=== PATIENT | female | born 1930 | race Caucasian/White ===

== ENCOUNTER 2016-11-20 17:15 | Observation (INO) | payer OTHER ==
[~2016-11-20] VITALS: Ht 149.9 cm; Wt 49.0 kg
[~2016-11-20 17:15] MED LIST: CALCIUM 600 +1 EAC7 PO; PROZAC10 MG PO; SINGULAIR10 MG PO; TRAZODONE; TRAZODONE HCL50 MG PO; TYLENOL REGULA325 MG PO; VITAMIN D1000 INTUN PO
[2016-11-20 19:44] LABS: EOSINOPHIL (%) 2.3 % (0-5); EOSINOPHIL COUNT 0.2 K/uL (0-0.3); HEMATOCRIT 41.3 % (36.0-46.0); IMMATURE GRANULOCYTE (%) 0.1 % (0.0-0.7); IMMATURE GRANULOCYTE COUNT 0.1 K/uL; LYMPHOCYTE COUNT 1.8 K/uL (1.0-2.8); MCH 32.4 PG (29.0-34.0); MCHC 34.9 G/DL (30.0-36.0); MEAN PLAT.VOLUME 9.8 uM^3 (9.5-12.4); MONOCYTE (%) 8.2 % (3-12); MONOCYTE COUNT 0.6 K/uL (0-0.8); NEUTROPHIL (%) 63.5 % (45-76); NEUTROPHIL COUNT 4.4 K/uL (1.8-6.4); PLATELET COUNT 244 K/uL (156-360); RBC DIS.WIDTH-SD 42.5 % (39-53); RED BLOOD COUNT 4.44 M/uL (3.80-5.20)
[2016-11-20 19:56] LABS: CHLORIDE 107 mEq/L (99-109); POTASSIUM 3.9 mEq/L (3.7-5.4); SODIUM 142 mEq/L (136-147)
[2016-11-20 19:58] LABS: GLUCOSE 101 mg/dL (70-99)
[2016-11-20 19:59] LABS: ANION GAP 9 MEQ/L (2-14)
[2016-11-20 20:00] LABS: TOTAL BILIRUBIN 0.2 mg/dL (0.0-1.0)
[2016-11-20 20:01] LABS: ALKALINE PHOSPHATASE 54 IU/L (3-129)
[2016-11-20 20:02] LABS: GFR ESTIMATE (CALCULATED) > 59 mL/min/
[2016-11-20 20:03] LABS: UREA NITROGEN (BUN) 8 mg/dL (9-23)
[2016-11-20 20:05] LABS: LIPASE 94 U/L (1.0-51.0)
[2016-11-20 20:11] LABS: TROP-I INTERPRETATION NEGATIVE; TROPONIN-I < 0.01 ng/mL (0.0-0.30)
[2016-11-20] MEDS ORDERED: VITAMIN D31000 UNI2 PO (22:52)
[2016-11-20] MEDS ORDERED: CALCIUM 600 +1 EAC2 PO (22:53)
[2016-11-21 02:14] VITALS: BP 190/72
[2016-11-21 03:19] VITALS: BP 148/87
[2016-11-21 03:34] LABS: TROP-I INTERPRETATION NEGATIVE; TROPONIN-I < 0.01 ng/mL (0.0-0.30)
[2016-11-21 06:27] LABS: HEMATOCRIT 38.1 % (36.0-46.0); MCH 32.3 PG (29.0-34.0); MCHC 34.1 G/DL (30.0-36.0); MCV 94.8 FL (83-99); PLATELET COUNT 251 K/uL (156-360); RBC DIS.WIDTH-CV 13.2 % (11.8-14.6); RBC DIS.WIDTH-SD 45.6 % (39-53); RED BLOOD COUNT 4.02 M/uL (3.80-5.20); WHITE BLOOD COUNT 6.5 K/uL (4.1-10.2)
[2016-11-21 06:46] LABS: ALKALINE PHOSPHATASE 41 IU/L (3-129); ANION GAP 10 MEQ/L (2-14); CHLORIDE 109 MEQ/L (99-109); GFR ESTIMATE (CALCULATED) > 59 mL/min/; GLUCOSE 95 mg/dL (70-99); POTASSIUM 3.4 MEQ/L (3.7-5.4); SAMPLE HEMOLYSIS CHECK 0; SAMPLE ICTERIC CHECK 0; SAMPLE LIPEMIA CHECK 0; SODIUM 143 MEQ/L (136-147); TOTAL BILIRUBIN 0.4 MG/DL (0.0-1.0); UREA NITROGEN (BUN) 9 mg/dL (9-23)
[2016-11-21 06:48] LABS: TROP-I INTERPRETATION NEGATIVE; TROPONIN-I < 0.01 ng/mL (0.0-0.30)
[2016-11-21 08:05] VITALS: BP 174/73
[2016-11-21 14:21] VITALS: BP 164/71
[2016-11-21] MEDS ORDERED: ASPIR-LOW81 MG PO (14:56)
[2016-11-21] MEDS ORDERED: NIFEDIPINE ER30 MG PO (14:56)
== END 2016-11-21 15:45 | disposition home or self-care (01) ==
LOC: EME 17:15 → EDOF 11-21 00:59 → 5WEST 11-21 02:05
PROVIDERS: Emergency Medicine; Internal Medicine
DX: R07.89 Other chest pain (principal); I10 Essential (primary) hypertension; K21.9 Gastro-esophageal reflux disease without esophagitis; G89.29 Other chronic pain; F41.9 Anxiety disorder, unspecified; F32.9 Major depressive disorder, single episode, unspecified
CPT/HCPCS: 71020; 74177; 76705; 76770; 80053; 83690; 84484; 85025; 85027; 93005; 93975; 99281; 99285; G0378; J1644; J7030; J7040

== ENCOUNTER 2017-06-07 09:33 | Emergency (ER) | payer OTHER ==
[~2017-06-07] VITALS: Ht 149.9 cm; Wt 50.3 kg
[~2017-06-07 09:33] MED LIST changes: +ASPIR-LOW81 MG PO; +CALCIUM 600 +1 EAC2 PO; +NIFEDIPINE ER30 MG PO; +VITAMIN D31000 UNI2 PO
[2017-06-07 10:34] LABS: HEMATOCRIT 42.5 % (36.0-46.0); MCH 32.2 PG (29.0-34.0); MCHC 34.4 G/DL (30.0-36.0); MCV 93.6 FL (83-99); MEAN PLAT.VOLUME 10.3 uM^3 (9.5-12.4); PLATELET COUNT 243 K/uL (156-360); RBC DIS.WIDTH-CV 12.6 % (11.8-14.6); RBC DIS.WIDTH-SD 43.5 % (39-53); RED BLOOD COUNT 4.54 M/uL (3.80-5.20); WHITE BLOOD COUNT 5.3 K/uL (4.1-10.2)
[2017-06-07 10:43] LABS: CHLORIDE 106 mEq/L (99-109); POTASSIUM 3.9 mEq/L (3.7-5.4); SODIUM 142 mEq/L (136-147)
[2017-06-07 10:45] LABS: GLUCOSE 108 mg/dL (70-99)
[2017-06-07 10:46] LABS: ANION GAP 12 MEQ/L (2-14)
[2017-06-07 10:49] LABS: GFR ESTIMATE (CALCULATED) > 59 mL/min/
[2017-06-07 10:50] LABS: UREA NITROGEN (BUN) 7 mg/dL (9-23)
[2017-06-07 11:54] LABS: TROP-I INTERPRETATION NEGATIVE; TROPONIN-I < 0.01 ng/mL (0.0-0.30)
[2017-06-07 14:04] LABS: ADD MIUA? YES; BILIRUBIN NEGATIVE; BLOOD SMALL; COLOR YELLOW ((YELLOW)); GLUCOSE (STRIP) NEGATIVE; KETONES 5; LEUKOCYTES TRACE; NITRITE NEGATIVE; PROTEIN (STRIP) 30; SPECIFIC GRAVITY 1.009 (1.000-1.030); UROBILINOGEN 0.2 MG/DL (0.2-1.0)
[2017-06-07 14:17] LABS: BACTERIA RARE /HPF; BUDDING YEAST 4+; EPITHELIAL CELLS 1+ /HPF; MUCUS 1+ /LPF; UCUL ADDED? YES
[2017-06-07] MEDS ORDERED: MECLIZINE HCL25 MG PO (15:03)
[2017-06-07 15:47] VITALS: BP 148/50
== END 2017-06-07 15:47 | disposition home or self-care (01) ==
LOC: EME 09:33
PROVIDERS: Emergency Medicine
DX: H81.10 Benign paroxysmal vertigo, unspecified ear (principal); Z87.891 Personal history of nicotine dependence; Z88.2 Allergy status to sulfonamides
CPT/HCPCS: 70450; 71020; 80048; 81003; 84484; 85027; 87077; 87086; 87186; 93005; 99281; 99284

== ENCOUNTER 2017-10-03 17:13 | Emergency (ER) | payer OTHER ==
[~2017-10-03] VITALS: Ht 149.9 cm; Wt 51.7 kg
[~2017-10-03 17:13] MED LIST changes: +MECLIZINE HCL25 MG PO
[2017-10-03 18:20] LABS: HEMATOCRIT 43.4 % (36.0-46.0); HEMOGLOBIN 15.2 G/DL (11.9-15.5); MCH 33.1 PG (29.0-34.0); MCV 94.6 FL (83-99); PLATELET COUNT 223 K/uL (156-360); RBC DIS.WIDTH-CV 13.1 % (11.8-14.6); RBC DIS.WIDTH-SD 45.3 % (39-53); RED BLOOD COUNT 4.59 M/uL (3.80-5.20); WHITE BLOOD COUNT 7.7 K/uL (4.1-10.2)
[2017-10-03 18:43] LABS: CHLORIDE 108 mEq/L (99-109); POTASSIUM 3.6 mEq/L (3.7-5.4); SODIUM 141 mEq/L (136-147)
[2017-10-03 18:44] LABS: GLUCOSE 91 mg/dL (70-99)
[2017-10-03 18:48] LABS: CREATININE 0.7 mg/dL (0.6-1.3); GFR ESTIMATE (CALCULATED) > 59 mL/min/
[2017-10-03 18:50] LABS: TROP-I INTERPRETATION NEGATIVE; TROPONIN-I < 0.01 ng/mL (0.0-0.30)
[2017-10-03 18:55] LABS: UREA NITROGEN (BUN) 9 mg/dL (9-23)
[2017-10-03 20:59] LABS: ALBUMIN 4.4 g/dL (3.2-4.8)
[2017-10-03 21:04] LABS: TOTAL BILIRUBIN 0.4 mg/dL (0.0-1.0)
[2017-10-03 21:05] LABS: ALKALINE PHOSPHATASE 58 IU/L (3-129)
[2017-10-03 21:08] LABS: ALT (GPT) 16 IU/L (3-49); AST (GOT) 21 IU/L (2-34); DIRECT BILIRUBIN 0.2 mg/dL (0.0-0.3)
[2017-10-03 21:09] LABS: APPEARANCE SL.HAZY ((CLEAR)); BILIRUBIN NEGATIVE; BLOOD MODERATE; COLOR STRAW ((YELLOW)); GLUCOSE (STRIP) NEGATIVE; KETONES 5; LEUKOCYTES MODERATE; NITRITE NEGATIVE; PROTEIN (STRIP) NEGATIVE; SPECIFIC GRAVITY 1.012 (1.000-1.030); UROBILINOGEN 0.2 MG/DL (0.2-1.0)
[2017-10-03 21:09] LABS: LIPASE 19 U/L (1.0-51.0)
[2017-10-03 21:14] LABS: BACTERIA RARE /HPF; EPITHELIAL CELLS 1+ /HPF; MUCUS TRACE /LPF; WHITE BLOOD CELLS 20-30 /HPF (0-5)
[2017-10-03 22:36] VITALS: BP 180/95
== END 2017-10-03 22:36 | disposition home or self-care (01) ==
LOC: EME 17:13 → EXP 17:13
PROVIDERS: Physician Assistant
DX: R07.89 Other chest pain (principal); K21.9 Gastro-esophageal reflux disease without esophagitis; I10 Essential (primary) hypertension; J45.909 Unspecified asthma, uncomplicated; F41.9 Anxiety disorder, unspecified; F32.9 Major depressive disorder, single episode, unspecified; Z87.891 Personal history of nicotine dependence; Z88.2 Allergy status to sulfonamides; Z88.8 Allergy status to other drugs, medicaments and biological substances
CPT/HCPCS: 71046; 76705; 80048; 80076; 81003; 83690; 84484; 85027; 93005; 99281; 99283